=== PATIENT | female | born 1985 | race Caucasian/White ===

== ENCOUNTER → 2016-05-11 | Outpatient (CLI) | payer BC | END | disposition home or self-care (01) | LOC: LABWHC1 09:48 | PROVIDERS: ATTEND Family Medicine | DX: R94.6 Abnormal results of thyroid function studies (principal) | CPT/HCPCS: 36415; 84439; 84443 ==

== ENCOUNTER → 2016-05-21 | Outpatient (CLI) | payer BC ==
[2016-05-27 11:02] LABS: Mis test requested (Non-blood) UCOTN
== END | disposition home or self-care (01) ==
LOC: MMGSC 16:22
PROVIDERS: ATTEND Family Medicine
DX: Z02.6 Encounter for examination for insurance purposes (principal)
CPT/HCPCS: 80307

== ENCOUNTER → 2016-05-24 | Outpatient (CLI) | payer BC | END | disposition home or self-care (01) | LOC: MMGSC 16:24 | PROVIDERS: ATTEND Family Medicine | DX: J32.9 Chronic sinusitis, unspecified (principal) | CPT/HCPCS: 87070 ==

== ENCOUNTER → 2017-02-25 | Outpatient (CLI) | payer BC ==
[2017-02-25 12:12] LABS: CH 29.7; HCT 39.1 % (34.0-46.0); HDW 2.83; HGB 13.5 gm/dL (11.4-16.0); MCH 29.4 pg (25.0-35.0); MCHC 34.5 g/dL (31.0-37.0); MCV 85.1 fL (80.0-100.0); Mean Platelet Volume 6.8; RBC 4.59 m/uL (3.80-5.40); RDW 13.2 % (11.5-15.5); WBC 11.6 k/uL (3.8-10.6)
[2017-02-25 12:33] LABS: Glucose 81 mg/dL (74-99); Non-African American GFR(MDRD) >60 (>60 ml/min/1.73 sqM)
[2017-02-25 17:34] LABS: Treponemal Ab Non-Reactive (Non-Reactive)
== END | disposition home or self-care (01) ==
LOC: LABWHC1 11:27
PROVIDERS: ATTEND Obstetrics & Gynecology
DX: O26.811 Pregnancy related exhaustion and fatigue, first trimester (principal); Z3A.00 Weeks of gestation of pregnancy not specified
CPT/HCPCS: 36415; 82565; 82947; 85027; 86762; 86780; 86850; 86900; 86901; 87340; 87390

== ENCOUNTER 2017-03-21 23:39 | Emergency (ER) | payer BC ==
--- NOTE | 2017-03-22 02:10 | US ---
EXAM: US After First Trimester, Transabdominal CLINICAL HISTORY: With pain and heavy vaginal bleeding today. TECHNIQUE: Real-time transabdominal obstetrical ultrasound of the maternal pelvis and a second or third trimester with image documentation. COMPARISON: None available at this time FINDINGS: Fetus: Detailed evaluation of the facial structures, abdominal structures, spine and umbilical cord were not performed. Heart rate: Positive heart tones at 155 bpm. Presentation: A single intrauterine gestation is identified in transverse position, head maternal right. Placenta: The placenta is anterior and lateral but appears to be low- lying. No evidence for abruption. Amniotic fluid: The FREDDIE is 11.9 cm. Anatomy: See above. BIOMETRICS Gestational age by US: EFW: The estimated weight is 125.5 g. BPD: The biparietal diameter is 3 cm consistent with 15 weeks 4 days HC: Head circumference is 11.5 cm consistent with 15 weeks 4 days. AC: The abdominal circumference is 9.3 cm consistent with 15 weeks 3 days. FL: The femur length is 1.9 cm consistent with 15 weeks 3 days. MATERNAL: Uterus: Unremarkable. No myometrial mass. Cervix: The cervix is normal measuring 3.5 cm. Adnexa: There is a simple appearing anechoic structure within the right adnexa measuring 15.7 x 9.6 cm. No internal vascular flow is seen. Free fluid: No free fluid. IMPRESSION: 1. There is a simple appearing anechoic structure within the right adnexa measuring 15.7 x 9.6 cm. No internal vascular flow is seen. Follow-up imaging is recommended. Alternatively, MRI of the pelvis without contrast may be performed to evaluate the adnexa. 2. The placenta is anterior and lateral but appears to be low-lying. Follow-up imaging to further define the placenta in the third trimester should be performed. No evidence for abruption. 3. Positive heart tones at 155 bpm.
--- NOTE | 2017-03-22 02:55 | ED ---
Female Urogenital HPI - General Chief complaint: Vaginal Bleeding Stated complaint: vaginal bleeding, 15 weeks preg Time Seen by Provider: 03/22/17 00:05 Source: patient, family, RN notes reviewed, old records reviewed Mode of arrival: ambulatory Limitations: no limitations - History of Present Illness Initial comments: This patient is a 32-year-old female currently 15 weeks presents today for vaginal bleeding for two hours. She has no pain and cramping. This is her second . Her PATTERNMAKER HELPER is Dr. Lim. She denies any trauma call me a heavy lifting, or intercourse related to the onset of bleeding. Patient states that she has a negative blood type. Your postage her previous had no complications. Do you know the new dysuria, vaginal discharge pain, nausea or vomiting. - Related Data Home Medications Medication Instructions Recorded Confirmed Levothyroxine Sodium [Synthroid] 50 mcg PO DAILY 03/21/17 03/21/17 Allergies Allergy/AdvReac Type Severity Reaction Status Date / Time Penicillins Allergy Rash/Hives Verified 03/21/17 23:49 Review of Systems ROS Statement: Those systems with pertinent positive or pertinent negative responses have been documented in the HPI. ROS Other: All systems not noted in ROS Statement are negative. Past Medical History Past Medical History: Thyroid Disorder History of Any Multi-Drug Resistant Organisms: None Reported Past Surgical History: No Surgical Hx Reported Past Psychological History: No Psychological Hx Reported Smoking Status: Former smoker Past Alcohol Use History: None Reported Past Drug Use History: None Reported General Exam - General Exam Comments Initial Comments: This is a 32-year-old female. No distress. Limitations: no limitations General appearance: alert, in no apparent distress Head exam: Present: atraumatic, normocephalic, normal inspection Eye exam: Present: normal appearance, PERRL, EOMI. Absent: scleral icterus, conjunctival injection, periorbital swelling ENT exam: Present: normal exam, mucous membranes moist Neck exam: Present: normal inspection. Absent: tenderness, meningismus, lymphadenopathy Respiratory exam: Present: normal lung sounds bilaterally. Absent: respiratory distress, wheezes, rales, rhonchi, stridor Cardiovascular Exam: Present: regular rate, normal rhythm, normal heart sounds. Absent: systolic murmur, diastolic murmur, rubs, gallop, clicks GI/Abdominal exam: Present: soft, normal bowel sounds. Absent: distended, tenderness, guarding, rebound, rigid External exam: Present: normal external exam Speculum exam: Present: vaginal bleeding. Absent: normal speculum exam, erythema, vaginal discharge By manual exam: Present: normal by manual exam, adnexal mass (right adenexal mass). Absent: cervical motion tenderness, adnexal tenderness Extremities exam: Present: normal inspection, full ROM, normal capillary refill. Absent: tenderness, pedal edema, joint swelling, calf tenderness Back exam: Present: normal inspection Neurological exam: Present: alert, oriented X3, CN II-XII intact Psychiatric exam: Present: normal affect, normal mood Skin exam: Present: warm, dry, intact, normal color. Absent: rash Course Vital Signs 03/21/17 03/22/17 03/22/17 23:46 04:16 04:19 Temperature 99 F 99.5 F 99.6 F Pulse Rate 86 80 82 Respiratory 18 18 18 Rate Blood Pressure 141/73 122/73 120/67 O2 Sat by Pulse 99 99 Oximetry 03/22/17 04:29 Temperature 98.8 F Pulse Rate 84 Respiratory 16 Rate Blood Pressure 122/66 O2 Sat by Pulse 98 Oximetry Medical Decision Making - Medical Decision Making Pt is a 32 year old female, 15 weeks with 2 hours vaginal bleeding. Pelvic exam does show significant ammount of vaginal bleeding. Cervix appears closed, with some blood from the os. Patient is Rh -. Patient given Rhogam shot for threaatened miscarriage. US preforomed. There is a simple appearing anechoic structure with on the right adenexa measuring 15 x 9 cm. No internal vascular flow is seen. Follow-up imaging is recommended. The placenta is anterior and lateral to be more like. Follow-up imaging to further defined the placenta and a third trimester should be performed. No evidence for abruption.Positive heart tones at 155. Discussed that patient has a threatened miscarriage at this time with ammount of bleeding. She has no pain. Discussed her large ovarian cyst. Discussed she needs to see in 1-2 days. Will repeat hcg. - Lab Data Result diagrams: 03/22/17 00:52 Lab Results 03/22/17 03/22/17 03/22/17 Range/Units 00:52 00:52 00:52 WBC 12.6 H (3.8-10.6) k/uL RBC 4.63 (3.80-5.40) m/uL Hgb 13.5 (11.4-16.0) gm/dL Hct 38.9 (34.0-46.0) % MCV 84.0 (80.0-100.0) fL MCH 29.1 (25.0-35.0) pg MCHC 34.7 (31.0-37.0) g/dL RDW 13.7 (11.5-15.5) % Plt Count 230 (150-450) k/uL Neutrophils % 73 % Lymphocytes % 20 % Monocytes % 4 % Eosinophils % 1 % Basophils % 0 % Neutrophils # 9.2 H (1.3-7.7) k/uL Lymphocytes # 2.5 (1.0-4.8) k/uL Monocytes # 0.5 (0-1.0) k/uL Eosinophils # 0.2 (0-0.7) k/uL Basophils # 0.1 (0-0.2) k/uL HCG, Quant 07233.0 mIU/mL Urine HCG, Qual (Not Detectd) Blood Type O Negative Blood Type Recheck No Antibody Screen NEGATIVE 03/22/17 Range/Units 00:59 WBC (3.8-10.6) k/uL RBC (3.80-5.40) m/uL Hgb (11.4-16.0) gm/dL Hct (34.0-46.0) % MCV (80.0-100.0) fL MCH (25.0-35.0) pg MCHC (31.0-37.0) g/dL RDW (11.5-15.5) % Plt Count (150-450) k/uL Neutrophils % % Lymphocytes % % Monocytes % % Eosinophils % % Basophils % % Neutrophils # (1.3-7.7) k/uL Lymphocytes # (1.0-4.8) k/uL Monocytes # (0-1.0) k/uL Eosinophils # (0-0.7) k/uL Basophils # (0-0.2) k/uL HCG, Quant mIU/mL Urine HCG, Qual Detected (Not Detectd) Blood Type Blood Type Recheck Antibody Screen - Radiology Data Radiology results: report reviewed There is a simple appearing in a coke structure with on the right at Tisha measuring 15 x 9 cm. No internal vascular flow is seen. Follow-up imaging is recommended. The percentage is anterior and lateral to be more like. Follow-up imaging to further defined the placenta and a third trimester should be performed. No evidence for abruption.Positive heart tones at 155. Disposition Clinical Impression: Threatened miscarriage, Ovarian cyst Disposition: HOME SELF-CARE Condition: Good Instructions: Threatened Miscarriage (ED), Ovarian Cyst (ED) Additional Instructions: Patient is a follow-up with PATTERNMAKER HELPER within the next 3 days. Patient should return to emergency department if any alarming signs or symptoms occur.. Repeat normal level. Referrals: Ciarra Humphries MD [Primary Care Provider] - 1-2 days Time of Disposition: 02:54
[2017-03-22 02:58] LABS: Basophils # (A) 0.1 k/uL (0-0.2); Basophils % (A) 0 %; CH 30.1; Eosinophils # (A) 0.2 k/uL (0-0.7); Eosinophils % (A) 1 %; HCT 38.9 % (34.0-46.0); HDW 3.04; HGB 13.5 gm/dL (11.4-16.0); Luc # (Auto) 0.16; Luc % (Auto) 1; Lymphocytes # (A) 2.5 k/uL (1.0-4.8); Lymphocytes % (A) 20 %; MCH 29.1 pg (25.0-35.0); MCHC 34.7 g/dL (31.0-37.0); Monocytes # (A) 0.5 k/uL (0-1.0); Monocytes % (A) 4 %; Neutrophils # (A) 9.2 k/uL (1.3-7.7); Neutrophils % (A) 73 %; RBC 4.63 m/uL (3.80-5.40); RDW 13.7 % (11.5-15.5); WBC 12.6 k/uL (3.8-10.6); WBC (Perox) 11.97
[2017-03-22 04:30] VITALS: BP 122/66; PULSE 84; RESP 16; TEMP 98.8
[2017-03-22] MEDS ORDERED: Rhogam IMMUNE GLOBULIN 1,500 UNIT/1 ML IM ONE (04:37)
== END 2017-03-22 04:42 | disposition home or self-care (01) ==
LOC: EC 23:39
DX: O20.0 Threatened abortion (principal); O34.82 Maternal care for other abnormalities of pelvic organs, second trimester; N83.201 Unspecified ovarian cyst, right side; O26.892 Other specified pregnancy related conditions, second trimester; O99.282 Endocrine, nutritional and metabolic diseases complicating pregnancy, second trimester; E07.9 Disorder of thyroid, unspecified; Z87.891 Personal history of nicotine dependence; Z79.899 Other long term (current) drug therapy; Z88.0 Allergy status to penicillin; Z3A.15 15 weeks gestation of pregnancy
CPT/HCPCS: 36415; 86900; 86901; 85025; 86850; 81025; 84702; 87491; 87591; 76805; 99284; 90384; 96372; J2791

== ENCOUNTER 2017-04-12 12:24 | Observation (INO) | payer BC ==
[2017-04-12] MEDS ORDERED: MORPHINE SULFATE 2 MG/ML SYRINGE IVP STA (13:56)
[2017-04-12] MEDS ORDERED: SODIUM CHLORIDE 0.9% 1,000 ML IV ONE (13:57)
[2017-04-12] MEDS ORDERED: METOCLOPRAMIDE 5 MG/ML 2 ML VIAL IVP STA (13:57)
[2017-04-12] MEDS ORDERED: diphenhydrAMINE 50 MG/ML 1 ML VIAL IVP STA (13:57)
[2017-04-12 14:07] LABS: Basophils # (A) 0.1 k/uL (0-0.2); Basophils % (A) 0 %; Eosinophils # (A) 0.1 k/uL (0-0.7); Eosinophils % (A) 0 %; HCT 42.6 % (34.0-46.0); Lymphocytes # (A) 1.5 k/uL (1.0-4.8); Lymphocytes % (A) 8 %; MCH 28.2 pg (25.0-35.0); MCHC 32.8 g/dL (31.0-37.0); Mean Platelet Volume 7.5; Monocytes # (A) 0.5 k/uL (0-1.0); Monocytes % (A) 3 %; Neutrophils # (A) 17.5 k/uL (1.3-7.7); Neutrophils % (A) 88 %; Platelet Count 256 k/uL (150-450); RBC 4.96 m/uL (3.80-5.40); RDW 14.9 % (11.5-15.5); WBC 19.8 k/uL (3.8-10.6)
[2017-04-12 14:21] LABS: ALT 29 U/L (9-52); AST 17 U/L (14-36); Albumin 4.2 g/dL (3.5-5.0); Alkaline Phosphatase 71 U/L (38-126); Anion Gap 14 mmol/L; Blood Urea Nitrogen 7 mg/dL (7-17); Calcium 9.9 mg/dL (8.4-10.2); Carbon Dioxide 19 mmol/L (22-30); Chloride 107 mmol/L (98-107); Glucose 108 mg/dL (74-99); Potassium 3.9 mmol/L (3.5-5.1); Sodium 140 mmol/L (137-145); Total Bilirubin 0.3 mg/dL (0.2-1.3); Total Protein 7.3 g/dL (6.3-8.2)
--- NOTE | 2017-04-12 15:25 | US ---
EXAMINATION TYPE: US abdomen APPY DATE OF EXAM: 04/12/2017 COMPARISON: NONE CLINICAL HISTORY: RLQ Pain. Elevated WBC TECHNIQUE: Ledezma scale color flow and spectral Doppler ultrasonography was performed of the right abdo men. APPENDIX AP Diameter (normal < 6mm): Not visualized on this exam Is the appendix seen in its entirety from the proximal cecum to distal end: No, the appendix is not visualized on this exam Within the right adnexa, there is a complex cystic area of unknown etiology visualized measuring 13.6 x 10.9 x 14.9 cm. This area previously measured 15.7 x 9.6 x 14.1 cm on 03/22/2017. Color flow and spectral signals are identified within the soft tissue focus in the right lower quadra nt adjacent to the complex cyst. IMPRESSION: A normal or abnormal appendix is not seen. There is a complex cystic area which is slightly decreased in size since the prior study. Continued i maging follow-up is recommended. MRI could also be obtained if warranted.
--- NOTE | 2017-04-12 15:34 | US ---
EXAMINATION TYPE: US OB >= 14 wk fetus DATE OF EXAM: 04/12/2017 COMPARISON: US 03/22/2017 CLINICAL HISTORY: Pain Difficult exam due to position TECHNIQUE: Transabdominal (TA) GESTATIONAL AGE / DATING Physician Established: (17 weeks/6 days) EDC: 09/14/2017 Dates by LMP: (17 weeks/6 days) EDC: 09/14/2017 Dates by First Scan: (18 weeks/5 days) EDC: 09/08/2017 Dates by Current Scan: (17 weeks/6 days) EDC: 09/14/2017 Beta HCG (if available): Not available at time of exam SURVEY IUP: Single PLACENTA: Anterior/Fundal PREVIA: Low Lying FREDDIE: 13.9 cm Normal CERVICAL LENGTH (transabdominal: norm > 3.0cm): 4.4 cm BIOMETRY PRESENTATION: Breech LIE: Transverse with head maternal right BPD: 3.85 cm 17 weeks / 5 days HC: 14.6 cm 14 weeks / 4 days AC: 13.07 cm 18 weeks / 4 days FL: 2.63 cm 18 weeks / 0 days ESTIMATED WEIGHT IN GRAMS: 229.65 grams ESTIMATED WEIGHT IN LBS/OZ: 0 lbs. 8 oz. WEIGHT PERCENTAGE BASED ON ESTABLISHED DATES: 68.4% HC/AC: 1.09 Normal FL/AC: 20.14 Normal HEART RATE: 153 bpm RHYTHM: Normal MATERNAL WALL MEASUREMENT: 4.6 cm from skin to anterior uterine wall (if exam limited due to body hab itus). Viable IUP, measurements consistent with dates. Low lying placenta. Difficult exam as patient is in e xtreme pain and could not tolerate probe pressure. Limited visualization of head structures due to position. IMPRESSION: The placenta is again anterior and lateral but appears to be low-lying. Follow-up imaging to further define the placenta in the third trimester should be performed. No evidence for abruption. Positive heart tones at 155 bpm.
[2017-04-12 15:39] LABS: Amorphous Sediment,Urine Rare /hpf; Appearance,Urine Cloudy (Clear); Bilirubin,Urine Negative (Negative); Blood,Urine Negative (Negative); Color,Urine Yellow; Glucose,Urine (UA) Negative (Negative); Hyaline Casts,Urine 5 /lpf (0-2); Ketones,Urine 4+ (Negative); Leukocyte Esterase,Urine Moderate (Negative); Mucus,Urine Many /hpf; Nitrite,Urine Negative (Negative); PH, Urine 7.5 (5.0-8.0); Protein,Urine 1+ (Negative); Specific Gravity,Urine 1.025 (1.001-1.035); Squamous Epithelial Cell,Urine 19 /hpf (0-4); Urobilinogen,Urine <2.0 mg/dL (<2.0); WBC,Urine 43 /hpf (0-5)
[2017-04-12] MEDS ORDERED: MORPHINE SULFATE 2 MG/ML SYRINGE IVP ONE ×2 (15:46→16:52)
--- NOTE | 2017-04-12 16:12 | ED ---
Abdominal Pain HPI - General Chief Complaint: Abdominal Pain Stated Complaint: Abd Pain-18 weeks Time Seen by Provider: 04/12/17 13:15 Source: patient Mode of arrival: wheelchair Limitations: no limitations - History of Present Illness Initial Comments: 32-year-old female patient presents to the emergency department today for evaluation of lower abdominal pain with radiation to her back. Patient is currently 18 weeks . She is . Her initial was uncomplicated. Patient states that this pain started this morning around 11: 00. She describes the pain as sharp in nature and severe. She is currently rating at a 9 out of 10 on the pain scale. She states the pain is located all across her lower abdomen but is worse on the right lower quadrant. The patient states that she has a known cyst on the right side. She denies any vaginal bleeding or discharge. Denies any hematuria, dysuria, urinary frequency, or urinary urgency. She denies any fevers or chills. States she has been nauseated and has vomited related to the pain. She denies any diarrhea or constipation. Patient denies any recent rash, shortness breath, chest pain, numbness, tingling, dizziness, weakness, headache, visual changes, or any other complaints. She denies any previous abdominal surgeries. - Related Data Home Medications Medication Instructions Recorded Confirmed Levothyroxine Sodium [Synthroid] 50 mcg PO DAILY 03/21/17 04/12/17 Pnv,Calcium 72/Iron/Folic Acid 1 tab PO DAILY 04/12/17 04/12/17 [ Plus Tablet] Allergies Allergy/AdvReac Type Severity Reaction Status Date / Time Penicillins Allergy Rash/Hives Verified 04/12/17 13:27 Review of Systems ROS Statement: Those systems with pertinent positive or pertinent negative responses have been documented in the HPI. ROS Other: All systems not noted in ROS Statement are negative. Past Medical History Past Medical History: Thyroid Disorder History of Any Multi-Drug Resistant Organisms: None Reported Past Surgical History: No Surgical Hx Reported Past Psychological History: No Psychological Hx Reported Smoking Status: Former smoker Past Alcohol Use History: None Reported Past Drug Use History: None Reported General Exam Limitations: no limitations General appearance: alert, in no apparent distress, other (Physical well- developed, well-nourished adult female patient in mild distress related to pain. Vital signs upon presentation are temperature 96.9F, pulse 67, respirations 16, blood pressure 107/65, pulse ox 100% on room air.) Eye exam: Present: normal appearance, PERRL, EOMI. Absent: scleral icterus, conjunctival injection, periorbital swelling ENT exam: Present: normal exam, normal oropharynx, mucous membranes moist Respiratory exam: Present: normal lung sounds bilaterally. Absent: respiratory distress, wheezes, rales, rhonchi, stridor Cardiovascular Exam: Present: regular rate, normal rhythm, normal heart sounds. Absent: systolic murmur, diastolic murmur, rubs, gallop, clicks GI/Abdominal exam: Present: soft, tenderness (Right lower quadrant abdominal tenderness.), normal bowel sounds. Absent: distended, guarding, rebound, rigid Back exam: Present: normal inspection. Absent: CVA tenderness (R), CVA tenderness (L) Neurological exam: Present: alert, oriented X3, CN II-XII intact Psychiatric exam: Present: normal affect, normal mood Skin exam: Present: warm, dry, intact, normal color. Absent: rash Course Vital Signs 04/12/17 04/12/17 13:08 16:46 Temperature 96.9 F L 98.1 F Pulse Rate 67 74 Respiratory 16 18 Rate Blood Pressure 107/65 136/67 O2 Sat by Pulse 100 97 Oximetry Medical Decision Making - Medical Decision Making 32-year-old female patient presented to the emergency department today with complaints of lower abdominal pain worse in the right lower quadrant. Patient is also reporting lower back pain. Patient is 18 weeks and is . Physical examination does reveal some lower abdominal tenderness again worse in the right lower quadrant. No CVA tenderness is noted. Labs reviewed and did reveal an elevated white blood cell count at 19.8, urinalysis did show cloudy appearance with 1+ protein, 4+ ketones, moderate leukocyte esterase, 43 white blood cells, 19 squamous epithelial cells, rare amorphous sediment, 5 hyaline casts, and many urine mucus. This has been sent for culture. Patient is given a total of 8 mg of morphine here in the emergency department, she is still in significant pain. My attending Dr. Pritchard did speak to Dr. Castaneda who agrees to admit patient for further evaluation. IV fluids and pain management has been provided. - Lab Data Result diagrams: 04/12/17 13:57 04/12/17 13:57 Lab Results 04/12/17 04/12/17 04/12/17 Range/Units 13:57 13:57 15:20 WBC 19.8 H (3.8-10.6) k/uL RBC 4.96 (3.80-5.40) m/uL Hgb 14.0 (11.4-16.0) gm/dL Hct 42.6 (34.0-46.0) % MCV 86.0 (80.0-100.0) fL MCH 28.2 (25.0-35.0) pg MCHC 32.8 (31.0-37.0) g/dL RDW 14.9 (11.5-15.5) % Plt Count 256 (150-450) k/uL Neutrophils % 88 % Lymphocytes % 8 % Monocytes % 3 % Eosinophils % 0 % Basophils % 0 % Neutrophils # 17.5 H (1.3-7.7) k/uL Lymphocytes # 1.5 (1.0-4.8) k/uL Monocytes # 0.5 (0-1.0) k/uL Eosinophils # 0.1 (0-0.7) k/uL Basophils # 0.1 (0-0.2) k/uL Sodium 140 (137-145) mmol/L Potassium 3.9 (3.5-5.1) mmol/L Chloride 107 (98-107) mmol/L Carbon Dioxide 19 L (22-30) mmol/L Anion Gap 14 mmol/L BUN 7 (7-17) mg/dL Creatinine 0.69 (0.52-1.04) mg/dL Est GFR (MDRD) Af Amer >60 (>60 ml/min/1.73 sqM) Est GFR (MDRD) Non-Af >60 (>60 ml/min/1.73 sqM) Glucose 108 H (74-99) mg/dL Calcium 9.9 (8.4-10.2) mg/dL Total Bilirubin 0.3 (0.2-1.3) mg/dL AST 17 (14-36) U/L ALT 29 (9-52) U/L Alkaline Phosphatase 71 (38-126) U/L Total Protein 7.3 (6.3-8.2) g/dL Albumin 4.2 (3.5-5.0) g/dL Urine Color Yellow Urine Appearance Cloudy H (Clear) Urine pH 7.5 (5.0-8.0) Ur Specific [place] 1.025 (1.001-1.035) Urine Protein 1+ H (Negative) Urine Glucose (UA) Negative (Negative) Urine Ketones 4+ H (Negative) Urine Blood Negative (Negative) Urine Nitrite Negative (Negative) Urine Bilirubin Negative (Negative) Urine Urobilinogen <2.0 (<2.0) mg/dL Ur Leukocyte Esterase Moderate H (Negative) Urine WBC 43 H (0-5) /hpf Ur Squamous Epith Cells 19 H (0-4) /hpf Amorphous Sediment Rare H (None) /hpf Hyaline Casts 5 H (0-2) /lpf Urine Mucus Many H (None) /hpf - Radiology Data Radiology results: report reviewed, image reviewed Ultrasound of the fetus was obtained. Report was reviewed in its entirety. Impression by Dr. Monte shows placenta is again anterior and lateral but appears to be low lying. Follow-up imaging to further define the placenta in the third trimester should be performed. No evidence for abruption. Positive heart tones at 155. Ultrasound of the abdomen was obtained. Report was reviewed in its entirety. Impression by Dr. Monte shows a normal or abnormal appendix is not seen. There is a complex cystic area which is slightly decreased in size since the prior study. Continued imaging follow-up is recommended. MRI could also be obtained if warranted. Disposition Clinical Impression: Abdominal pain during , Complex cyst of right ovary Disposition: ADMITTED IP TO THIS [facility] Condition: Serious Referrals: Ciarra Humphries MD [Primary Care Provider] - 1-2 days Decision to Admit Reason: Admit from EC Decision Date: 04/12/17 Decision Time: 16:39
[2017-04-12] MEDS ORDERED: SODIUM CHLORIDE 0.9% 1,000 ML IV SCH (16:30)
[2017-04-12] MEDS ORDERED: NALOXONE 0.4 MG/ML 1 ML VIAL IV PRN ×2 (16:30→20:41)
[2017-04-12] MEDS ORDERED: MORPHINE SULFATE 5 MG/ML SYRINGE IV PRN (16:36)
[2017-04-12] MEDS ORDERED: ACETAMINOPHEN TAB 325 MG TAB PO PRN (16:36)
[2017-04-12] MEDS ORDERED: METOCLOPRAMIDE 5 MG/ML 2 ML VIAL IVP PRN (16:37)
[2017-04-12] MEDS ORDERED: diphenhydrAMINE 50 MG/ML 1 ML VIAL IVP PRN (16:37)
[2017-04-12 18:40] VITALS: BMI 30.4
--- NOTE | 2017-04-12 19:10 | P.HPOB ---
History of Present Illness H&P Date: 04/12/17 Chief Complaint: IUP 18 weeks: 15 cm right ovarian cyst with suspected torsion Geneva is a 32-year-old at 18 weeks gestation who has a large 15 x 10 cm right ovarian cyst. She was noted to have a smaller 7 x 7 cm cyst at approximately 8 weeks gestation however by 15 weeks gestation it had doubled in size. She had pain and bleeding was seen in the emergency room at that time in late February but was not having any pain. At that time she received program. However, this morning at approximately 11 AM she began having sharp severe pain that has been constant has not improved. She rates the pain as as 8 out of 10 on a scale even with receipt of 10 mg of morphine. Her abdomen however is soft with only minimal tenderness. A lengthy discussion was held with the patient that this arrived both risks and benefits of any type of surgery at this gestational age. Certainly the risk of spontaneous miscarriages present, so ultimately is the risk of labor down the line. However, her white blood cell count is elevated to 19 and I suspect that this is a torsion based on her symptoms as well as its presentation. Risks also including but not limited to damage to bladder, bowel, vascular injuries, nerve injuries, bleeding and infection. On physical exam currently vital signs are stable and afebrile, heart regular, lungs clear, extremities without pain. Abdomen is otherwise soft bowel sounds are noted. Gravid uterus is noted slightly below the umbilicus and heart tones were noted to be in the 150s on ultrasound. Assessment intrauterine at 18 weeks with grossly enlarged 15 cm what mostly appears to be a simple cyst and suspected torsion. Plan exploratory laparotomy with possible cystectomy versus cystotomy versus oophorectomy depending on what we find. We did discuss the possibility of doing this laparoscopically and ultimately once she is asleep if we are more comfortable with doing it laparoscopically with her being asleep and having better ability to palpate both the uterus and the cyst that may still be the route we take. Past Medical History Past Medical History: Thyroid Disorder History of Any Multi-Drug Resistant Organisms: None Reported Past Surgical History: No Surgical Hx Reported Additional Past Anesthesia/Blood Transfusion Reaction / Comment(s): NO SURGERY HISTORY Past Psychological History: No Psychological Hx Reported Smoking Status: Former smoker Past Alcohol Use History: None Reported Past Drug Use History: None Reported - Past Family History Father Additional Family Medical History / Comment(s): CARDIAC HISTORY Mother Additional Family Medical History / Comment(s): AORTIC ANEURYSM Medications and Allergies Home Medications Medication Instructions Recorded Confirmed Type Levothyroxine Sodium [Synthroid] 50 mcg PO DAILY 03/21/17 04/12/17 History Pnv,Calcium 72/Iron/Folic Acid 1 tab PO DAILY 04/12/17 04/12/17 History [ Plus Tablet] Allergies Allergy/AdvReac Type Severity Reaction Status Date / Time Penicillins Allergy Rash/Hives Verified 04/12/17 18:20 Exam Osteopathic Statement: *. No significant issues noted on an osteopathic structural exam other than those noted in the History and Physical/Consult. - Vital Signs Vital signs: Vital Signs Temp Pulse Pulse Resp BP BP Pulse Ox 04/12/17 17:48 98.3 F 66 17 118/54 97 04/12/17 17:43 66 17 118/54 97 04/12/17 17:28 98.1 F 74 20 128/74 99 04/12/17 16:46 98.1 F 74 18 136/67 97 04/12/17 13:08 96.9 F L 67 16 107/65 100 Intake and Output 04/12/17 04/12/17 04/12/17 06:59 14:59 22:59 Other: Voiding Method Toilet Weight 90.718 kg 90.718 kg Patient Weight 04/13/17 06:59 Weight 90.718 kg Results Result Diagrams: 04/12/17 13:57 04/12/17 13:57 Abnormal Lab Results - Last 24 Hours (Table) 04/12/17 04/12/17 04/12/17 Range/Units 13:57 13:57 15:20 WBC 19.8 H (3.8-10.6) k/uL Neutrophils # 17.5 H (1.3-7.7) k/uL Carbon Dioxide 19 L (22-30) mmol/L Glucose 108 H (74-99) mg/dL Urine Appearance Cloudy H (Clear) Urine Protein 1+ H (Negative) Urine Ketones 4+ H (Negative) Ur Leukocyte Esterase Moderate H (Negative) Urine WBC 43 H (0-5) /hpf Ur Squamous Epith Cells 19 H (0-4) /hpf Amorphous Sediment Rare H (None) /hpf Hyaline Casts 5 H (0-2) /lpf Urine Mucus Many H (None) /hpf
[2017-04-12] MEDS ORDERED: ACETAMINOPHEN IV (For NPO) 1,000 MG/100 ML VIAL ONE (19:58)
[2017-04-12] MEDS ORDERED: SUCCINYLCHOLINE CHLORIDE 100 MG/5 ML SYR IV ONE (19:58)
[2017-04-12] MEDS ORDERED: PROPOFOL 10 MG/ML 20 ML VIAL IV ONE (19:58)
[2017-04-12] MEDS ORDERED: ROCURONIUM BROMIDE 10 MG/ML 10 ML VIAL IV ONE (19:58)
[2017-04-12] MEDS ORDERED: IV FLUID CONTINUATION 700 ML IV ONE (19:58)
[2017-04-12] MEDS ORDERED: fentaNYL (PF) 50 MCG/ML 2 ML AMP ONE (19:58)
[2017-04-12] MEDS ORDERED: SIMETHICONE 80 MG CHEWABLE PO PRN (20:40)
[2017-04-12] MEDS ORDERED: LACTATED RINGERS 1,000 ML IV ONE (20:40)
[2017-04-12] MEDS ORDERED: ONDANSETRON 4 MG/2 ML VIAL IVP PRN (20:40)
--- NOTE | 2017-04-12 20:46 | P.OP ---
Date of Procedure: 04/12/17 Preoperative Diagnosis: grossly enlarged ovarian cyst with suspected torsion: Intrauterine at 18 weeks Postoperative Diagnosis: same Procedure(s) Performed: exporter laparotomy with right ovarian cystotomy Anesthesia: KRAIG Surgeon: Haseeb Castaneda Analytics Developer #1: Lupis Ponce Estimated Blood Loss (ml): 50 IV fluids (ml): 1,300 Urine output (ml): 50 Pathology: none sent Condition: stable Disposition: floor Operative Findings: large right ovarian cyst. Normal looking ovary and tube as well as normal looking appendix Description of Procedure: patient was taken to the operating suite where a general anesthetic was found be adequate. She was prepped and draped in the normal sterile fashion and placed in dorsal supine position with leftward tilt. Initially a vertical skin incision was made from just below the umbilicus to just above the pubic symphysis. This incision was then extended to the layer of the fashion with second knife fascia was then nicked in the midline. This opening was then extended superiorly and inferiorly. Once this was accomplished blunt dissection the peritoneum was made and this opening was extended superiorly and inferiorly with good visualization of both bowel bladder. Immediately upon entering the large right ovarian cyst was noted. I did try and manipulated to bring it up to the incision however it ruptured upon manipulation and only clear fluid was noted. We were then able to bring the ovary up and verify that there was no further torsions. At this point we did verify that there appeared to have good flow blood flow and good color to the ovary and inspection of the appendix showed a grossly normal appendix. Once this was accomplished all fluid was then suctioned from the abdomen as best as possible. Once this was accomplished boundaries of the fascia were delineated with cokers clamps and the fascia was closed in 1 layer with 0 Vicryl suture in a running locking fashion starting from the umbilicus and to the midline and then from the pubic symphysis and back to the midline meeting in the middle. Once this was accomplished 3-0 Vicryl was used to reapproximate the subcuticular tissues to reapproximate the skin. The skin was then closed with hussein. Sponge, lap, needle counts were all correct 2 and patient was then taken to the recovery room in stable and satisfactory condition. Should be noted that minimal to no real manipulation of the uterus was done during the surgery.
[2017-04-12] MEDS: HYDROmorphone PCA 5 MG/25 ML SYRINGE IV PRN (22:07)
[2017-04-12] MEDS: SENNOSIDES-DOCUSATE SODIUM 1 EACH TAB PO SCH (22:13)
[2017-04-12] MEDS: LACTATED RINGERS 1,000 ML IV SCH (23:00)
[2017-04-13] MEDS: HYDROmorphone PCA 5 MG/25 ML SYRINGE IV PRN (06:07)
[2017-04-13 07:48] LABS: Basophils # (A) 0.1 k/uL (0-0.2); Basophils % (A) 0 %; Eosinophils # (A) 0.1 k/uL (0-0.7); Eosinophils % (A) 1 %; HCT 38.3 % (34.0-46.0); HGB 12.1 gm/dL (11.4-16.0); Lymphocytes # (A) 2.4 k/uL (1.0-4.8); Lymphocytes % (A) 16 %; MCH 28.3 pg (25.0-35.0); MCHC 31.7 g/dL (31.0-37.0); MCV 89.3 fL (80.0-100.0); Mean Platelet Volume 7.5; Monocytes # (A) 0.6 k/uL (0-1.0); Monocytes % (A) 4 %; Neutrophils % (A) 79 %; Platelet Count 227 k/uL (150-450); RBC 4.29 m/uL (3.80-5.40); RDW 14.7 % (11.5-15.5); WBC 15.2 k/uL (3.8-10.6)
[2017-04-13 08:06] LABS: ALT 28 U/L (9-52); AST 17 U/L (14-36); Albumin 3.1 g/dL (3.5-5.0); Alkaline Phosphatase 52 U/L (38-126); Anion Gap 7 mmol/L; Blood Urea Nitrogen 5 mg/dL (7-17); Calcium 8.8 mg/dL (8.4-10.2); Carbon Dioxide 23 mmol/L (22-30); Chloride 107 mmol/L (98-107); Glucose 91 mg/dL (74-99); Potassium 3.9 mmol/L (3.5-5.1); Sodium 137 mmol/L (137-145); Total Bilirubin 0.3 mg/dL (0.2-1.3); Total Protein 5.6 g/dL (6.3-8.2)
[2017-04-13] MEDS: SENNOSIDES-DOCUSATE SODIUM 1 EACH TAB PO SCH ×2 (08:15→21:12)
[2017-04-13] MEDS ORDERED: Acetaminophen-Codeine 300-30mg TAB PO PRN (10:18)
--- NOTE | 2017-04-13 10:20 | P.PN ---
Progress Note - Text Progress Note Date: 04/13/17 Patient seen and evaluated this morning. Overall she is doing very well postop day 1 from exploratory laparotomy. Her pain from yesterday's completely resolved she does have incisional pain only at this time. We'll plan to continue current care for now. Her vital signs are stable afebrile. Heart regular, lungs clear, extremities are without pain. Plan to leave the dressing on for today and removed tomorrow. Plan to advance diet today. PCO be discontinued at this afternoon and switch over to by mouth pain meds with IV pain meds for severe breakthrough only. All the questions are answered for her at this time and she appears stable at this time. heart tones this morning are in the 140s.
[2017-04-13] MEDS: Acetaminophen-Codeine 300-30mg TAB PO PRN ×2 (13:32→19:44)
[2017-04-13] MEDS: LACTATED RINGERS 1,000 ML IV SCH (21:12)
[2017-04-14] MEDS: Acetaminophen-Codeine 300-30mg TAB PO PRN ×5 (00:41→23:26)
--- NOTE | 2017-04-14 06:31 | P.PN ---
Progress Note - Text Progress Note Date: 04/14/17 Post operative day #2. Patient is resting without new complaints. She still having quite a bit of discomfort from her incision, but is tolerating regular diet and is on oral pain medications. Plan today is to continue ambulation and routine postoperative care. Most likely discharge home tomorrow.
[2017-04-14] MEDS: SENNOSIDES-DOCUSATE SODIUM 1 EACH TAB PO SCH ×2 (08:00→19:26)
[2017-04-14] MEDS: LACTATED RINGERS 1,000 ML IV SCH (19:53)
--- NOTE | 2017-04-15 06:36 | P.PN ---
Progress Note - Text Progress Note Date: 04/15/17 Postoperative day #3. Patient is resting without complaints. Vital signs are stable and she is afebrile. Incision is intact and dry healing well. My impression is that this patient is stable for discharge home. Follow-up with me in 1 week for an incision check and OB visit.
--- NOTE | 2017-04-15 06:39 | P.DS ---
Providers Date of admission: 04/12/17 17:28 Expected date of discharge: 04/15/17 Attending physician: Haseeb Castaneda Primary care physician[facility] Course: Please see dictated H&P per Dr. Beltran and this patient's admission. Brief summary this is a pleasant 32-year-old female second trimester with known large ovarian cyst with acute right-sided abdominal pain consistent with ovarian torsion. Patient her exploratory laparotomy and drainage of this cyst. Again see operative note per Dr. Beltran. Postoperatively the patient did well and on postoperative 3 she felt be stable for discharge home follow up with me in 1 week. Procedures: Exploratory laparotomy and right ovarian cystectomy. Patient Condition at Discharge: Serious Plan - Discharge Summary Discharge Rx Participant: No New Discharge Prescriptions: New Acetaminophen-Codeine 300-30mg [Tylenol w/codeine #3] 1 - 2 each PO Q4HR PRN #40 tab PRN Reason: Pain SCALE 1-5 No Action Levothyroxine Sodium [Synthroid] 50 mcg PO DAILY Pnv,Calcium 72/Iron/Folic Acid [ Plus Tablet] 1 tab PO DAILY Discharge Medication List Levothyroxine Sodium [Synthroid] 50 mcg PO DAILY 03/21/17 [History] Pnv,Calcium 72/Iron/Folic Acid [ Plus Tablet] 1 tab PO DAILY 04/12/17 [ History] Acetaminophen-Codeine 300-30mg [Tylenol w/codeine #3] 1 - 2 each PO Q4HR PRN # 40 tab 04/15/17 [Rx] Follow up Appointment(s)/Referral(s): Isak Lim MD [STAFF PHYSICIAN] - 1 Week Patient Instructions/Handouts: Exploratory Laparotomy (DC) Activity/Diet/Wound Care/Special Instructions: No heavy lifting for 6 weeks. No intercourse. Please call if fever, chills, excessive abdominal pain. Discharge Disposition: HOME SELF-CARE
[2017-04-15] MEDS: Acetaminophen-Codeine 300-30mg TAB PO PRN (07:12)
[2017-04-15 09:20] VITALS: BP 110/60; PULSE 85; RESP 17; TEMP 98.8
== END 2017-04-15 09:00 | disposition home or self-care (01) ==
LOC: EC 12:24 → 6PED 17:28 → 4FBP 21:19
PROVIDERS: ADMIT Obstetrics & Gynecology; ATTEND Obstetrics & Gynecology
DX: O34.82 Maternal care for other abnormalities of pelvic organs, second trimester (principal); N83.201 Unspecified ovarian cyst, right side; O99.282 Endocrine, nutritional and metabolic diseases complicating pregnancy, second trimester; E07.9 Disorder of thyroid, unspecified; Z87.891 Personal history of nicotine dependence; Z3A.18 18 weeks gestation of pregnancy; Z79.899 Other long term (current) drug therapy; Z88.0 Allergy status to penicillin
CPT/HCPCS: 58925; 99285 ×2; 96374 ×2; 96375 ×3; 96376 ×3; 36415; 80053 ×2; 85025 ×2; 81001; 87040; 87086; 76705; 76805; G0378 ×5; J1200; J2765 ×2; J3010; J2270; J1170 ×2; J0131; J0330; J2704

== ENCOUNTER → 2017-06-03 | Outpatient (CLI) | payer BC ==
[2017-06-03 19:43] LABS: ALT 16 U/L (9-52); AST 16 U/L (14-36); Albumin 3.6 g/dL (3.5-5.0); Alkaline Phosphatase 71 U/L (38-126); Anion Gap 10 mmol/L; Blood Urea Nitrogen 8 mg/dL (7-17); Calcium 9.2 mg/dL (8.4-10.2); Carbon Dioxide 23 mmol/L (22-30); Chloride 105 mmol/L (98-107); Cholesterol 216 mg/dL (<200); Glucose 68 mg/dL (74-99); HDL Cholesterol 55 mg/dL (40-60); LDL Cholesterol,Calculated 122 mg/dL (0-99); Potassium 4.2 mmol/L (3.5-5.1); Sodium 138 mmol/L (137-145); Total Bilirubin 0.3 mg/dL (0.2-1.3); Total Protein 6.5 g/dL (6.3-8.2); Triglycerides 197 mg/dL (<150)
[2017-06-03 19:47] LABS: Basophils # (A) 0.1 k/uL (0-0.2); Basophils % (A) 1 %; Eosinophils # (A) 0.1 k/uL (0-0.7); Eosinophils % (A) 1 %; HCT 38.1 % (34.0-46.0); HGB 13.1 gm/dL (11.4-16.0); Lymphocytes # (A) 2.2 k/uL (1.0-4.8); Lymphocytes % (A) 16 %; MCH 28.8 pg (25.0-35.0); MCHC 34.4 g/dL (31.0-37.0); Mean Platelet Volume 8.2; Monocytes # (A) 0.5 k/uL (0-1.0); Monocytes % (A) 4 %; Neutrophils # (A) 10.6 k/uL (1.3-7.7); Neutrophils % (A) 78 %; Platelet Count 240 k/uL (150-450); RBC 4.55 m/uL (3.80-5.40); RDW 13.8 % (11.5-15.5); WBC 13.6 k/uL (3.8-10.6)
[2017-06-03 19:50] LABS: MCV 83.6 fL (80.0-100.0)
[2017-06-03 19:54] LABS: T4, Free (Free Thyroxine) 0.84 ng/dL (0.78-2.19)
== END | disposition home or self-care (01) ==
LOC: MMGSC 12:01
PROVIDERS: ATTEND Family Medicine
DX: Z00.00 Encounter for general adult medical examination without abnormal findings (principal)
CPT/HCPCS: 36415; 80053; 80061; 84439; 84443; 85025

== ENCOUNTER → 2017-06-16 | Outpatient (CLI) | payer BC ==
[2017-06-16 10:50] LABS: HCT 36.1 % (34.0-46.0); MCH 27.9 pg (25.0-35.0); MCHC 33.4 g/dL (31.0-37.0); MCV 83.6 fL (80.0-100.0); Mean Platelet Volume 7.4; Platelet Count 235 k/uL (150-450); RBC 4.32 m/uL (3.80-5.40); RDW 13.9 % (11.5-15.5); WBC 15.3 k/uL (3.8-10.6)
== END | disposition home or self-care (01) ==
LOC: LABWHC1 09:30
PROVIDERS: ATTEND Obstetrics & Gynecology
DX: Z34.82 Encounter for supervision of other normal pregnancy, second trimester (principal); Z3A.00 Weeks of gestation of pregnancy not specified
CPT/HCPCS: 36415; 82950; 85027; 86850

== ENCOUNTER 2017-09-14 09:50 | Inpatient (IN) | payer BC ==
[2017-09-17] MEDS ORDERED: OXYTOCIN 10 UNIT/ML 1 ML VIAL IM PRN (06:01)
[2017-09-17] MEDS ORDERED: LIDOCAINE 1% (PF) 10 MG/ML (30 ML SDV) SQ PRN (06:01)
[2017-09-17] MEDS ORDERED: CARBOPROST TROMETHAMINE 250 MCG/ML 1 ML AMP IM PRN (06:01)
[2017-09-17] MEDS ORDERED: TERBUTALINE 1 MG/ML VIAL SQ PRN (06:01)
[2017-09-17] MEDS ORDERED: OXYTOCIN 20 UNITS/1000 ML NS 1,000 ML IV SCH ×2 (06:01→11:58)
[2017-09-17] MEDS ORDERED: METHYLERGONOVINE 0.2 MG/ML 1 ML AMP IM PRN (06:01)
[2017-09-17 06:08] VITALS: BMI 34.9
[2017-09-17] MEDS: LACTATED RINGERS 1,000 ML IV SCH ×2 (06:09→09:16)
[2017-09-17 06:17] LABS: Basophils # (A) 0.1 k/uL (0-0.2); Basophils % (A) 0 %; Eosinophils # (A) 0.2 k/uL (0-0.7); Eosinophils % (A) 1 %; HCT 36.3 % (34.0-46.0); HGB 12.3 gm/dL (11.4-16.0); Lymphocytes # (A) 2.6 k/uL (1.0-4.8); Lymphocytes % (A) 19 %; MCH 26.6 pg (25.0-35.0); Mean Platelet Volume 7.5; Microcytosis Slight; Monocytes # (A) 0.9 k/uL (0-1.0); Monocytes % (A) 7 %; Neutrophils # (A) 9.4 k/uL (1.3-7.7); Neutrophils % (A) 71 %; Platelet Count 237 k/uL (150-450); RBC 4.65 m/uL (3.80-5.40); RDW 15.7 % (11.5-15.5); WBC 13.2 k/uL (3.8-10.6)
--- NOTE | 2017-09-17 06:25 | P.HPOB ---
History of Present Illness H&P Date: 09/17/17 Chief Complaint: Postdates induction of labor. This patient is a pleasant 32-year-old 2 para 1 female estimated date of confinement 09/14/2017 estimated gestational age 40-3/7 weeks who presents to labor and delivery for elective postdates induction of labor. Patient's care is complicated by a very large right ovarian cyst. Patient had a 15 cm ovarian cyst that did torus at approximately 20 weeks. Patient underwent exploratory laparotomy by Dr. Castaneda for this and it was benign. Patient's otherwise has been uncomplicated. Patient now presents for requested induction of labor due to postdates. Review of Systems Gastrointestinal: Reports heartburn Genitourinary: Reports Menstruation: Reports amenorrhea Past Medical History Past Medical History: Thyroid Disorder History of Any Multi-Drug Resistant Organisms: None Reported Additional Past Surgical History / Comment(s): cyst on left wrist. sewing needle taken out of foot. wisdom teeth. Exploratory laparotomy at 20 weeks gestation. Past Anesthesia/Blood Transfusion Reactions: No Reported Reaction Past Psychological History: Anxiety Smoking Status: Former smoker Past Alcohol Use History: None Reported Past Drug Use History: None Reported - Past Family History Father Additional Family Medical History / Comment(s): CARDIAC HISTORY, mother had an aortic aneurysm at age 4141 years old. Mother Additional Family Medical History / Comment(s): AORTIC ANEURYSM Medications and Allergies Home Medications Medication Instructions Recorded Confirmed Type Levothyroxine Sodium [Synthroid] 50 mcg PO DAILY 03/21/17 09/17/17 History Pnv,Calcium 72/Iron/Folic Acid 1 tab PO DAILY 04/12/17 09/17/17 History [ Plus Tablet] Allergies Allergy/AdvReac Type Severity Reaction Status Date / Time Penicillins Allergy Rash/Hives Verified 09/17/17 06:01 Exam - Vital Signs Vital signs: Vital Signs Temp Pulse Resp BP 09/17/17 06:02 97.2 F L 80 16 132/90 Intake and Output 09/16/17 09/16/17 09/17/17 14:59 22:59 06:59 Other: # Voids 1 Weight 104.326 kg - OBG Physical Exam Abdomen: bowel sounds normal, no diffuse tenderness, no bruit present, no guarding noted, no hepatomegaly, no splenomegaly, no mass Vulva: both: normal Vagina: normal moisture, no discharge Cervix: no lesion (Cervix is 3-4 cm dilated 50% effaced -2 station.), no discharge Uterus: enlarged (Fundal height is 39 cm.) Results blood work shows she is O-, rubella immune, RPR nonreactive, HIV nonreactive, hepatitis B negative, Glucola was normal, group B strep was negative, ultrasounds have been normal with the exception ovarian cyst. Estimated weight is approximately 8 pounds. Assessment and Plan Assessment: This is a pleasant 32-year-old 2 para 1 female 40-3/7 weeks gestation who is admitted to labor and delivery for postdates induction of labor. Plan is induction of labor and anticipate vaginal delivery. (1) Post-dates Current Visit: Yes Status: Acute Code(s): O48.0 - POST-TERM SNOMED Code(s): 27917712 (2) Rh negative status during Current Visit: Yes Status: Acute Code(s): O09.899 - SUPERVISION OF OTHER HIGH RISK PREGNANCIES, UNSP TRIMESTER; Z67.91 - UNSPECIFIED BLOOD TYPE, RH NEGATIVE SNOMED Code(s): 362867830 (3) Elective induction of labor planned Current Visit: Yes Status: Acute Code(s): BKV2246 - SNOMED Code(s): 558130573
[2017-09-17] MEDS ORDERED: SODIUM CHLORIDE 0.9% 100 ML BAG ONE (09:16)
[2017-09-17] MEDS ORDERED: BUPIVACAINE (PF) 0.25% 30 ML VIAL ONE (09:16)
[2017-09-17] MEDS ORDERED: fentaNYL (PF) 50 MCG/ML 5 ML AMP ONE (09:16)
[2017-09-17] MEDS ORDERED: ROPIVACAINE 100 MG, fentaNYL (PF) 200 MCG in SODIUM CHLORIDE 0.9% 76 ML EPIDURAL ONE (11:41)
[2017-09-17] MEDS ORDERED: diphenhydrAMINE 25 MG CAP PO PRN (11:58)
[2017-09-17] MEDS ORDERED: HYDROCORTISONE 2.5% RECTAL CREAM 30 GM TUBE RECTAL PRN (11:58)
[2017-09-17] MEDS ORDERED: BISACODYL 10 MG SUPP RECTAL PRN (11:58)
[2017-09-17] MEDS ORDERED: WITCH HAZEL 1 EACH MED..PAD TOPICAL PRN (11:58)
[2017-09-17] MEDS ORDERED: LANOLIN CREAM 5 GM TUBE TOPICAL PRN (11:58)
[2017-09-17] MEDS ORDERED: ZOLPIDEM 5 MG TAB PO PRN (11:58)
[2017-09-17] MEDS ORDERED: diphenhydrAMINE 50 MG/ML 1 ML VIAL IVP PRN (11:58)
[2017-09-17] MEDS ORDERED: BENZOCAINE/MENTHOL SPRAY 1 GM/SPRAY AEROSOL TOPICAL PRN (11:58)
[2017-09-17] MEDS ORDERED: Rhogam IMMUNE GLOBULIN 1,500 UNIT/1 ML IM ONE (11:58)
[2017-09-17] MEDS ORDERED: SIMETHICONE 80 MG CHEWABLE PO PRN (11:58)
--- NOTE | 2017-09-17 12:23 | P.PROBDLV ---
Vaginal Delivery Note - . Vaginal Delivery Note: Normal vaginal delivery viable male infant Apgars are 9 and 9 delivery time was 1151 hrs. Please see dictated H&P for intimate details of this patient's admission. Brief summary this is a pleasant 32-year-old 2 para 1 female 40-3/7 weeks gestation who is admitted to labor and delivery for postdates induction. On admission patient is 3-4 cm dilated has artificial rupture membranes for clear fluid. Labor is induced with Pitocin per protocol. Patient's labor progresses quickly and she does get an epidural for pain control. Patient pushes the head to the perineum. Posterior perineum is supported we have controlled delivery of the infant's head over the intact perineum. Mouth and nares are bulb suctioned. There is no evidence of a nuchal cord. With gentle downward traction we then have delivery the anterior and posterior shoulder and rest this infant's body. This is a vigorous viable male Apgars are 9 and 9 delivery time is 1151 hrs. After delivery of the is late the mother's abdomen. After cord is done pulsating is doubly clamped cut and transected. It appears to be trivascular. The placenta is then spontaneously delivered intact. Inspection of the perineum shows a first-degree perineal laceration midline. There is also a left labial laceration. The perineal laceration is repaired with 3-0 Vicryl in the usual fashion excellent reapproximation is noted. The left labial laceration is repaired with 4-0 Vicryl carefully reapproximating the labia with good reapproximation. This time final inspection shows normal bleeding. All counts are correct 3. There are no complications. and mother are stable delivery room.
[2017-09-17] MEDS: SENNOSIDES-DOCUSATE SODIUM 1 EACH TAB PO SCH ×2 (16:03→20:58)
[2017-09-17] MEDS: IBUPROFEN 600 MG TAB PO PRN ×2 (17:01→23:01)
[2017-09-17] MEDS: ACETAMINOPHEN TAB 325 MG TAB PO PRN (20:57)
[2017-09-18 00:13] VITALS: PULSE 84
[2017-09-18] MEDS: ACETAMINOPHEN TAB 325 MG TAB PO PRN (02:41)
[2017-09-18 05:23] LABS: Basophils % (A) 0 %; Eosinophils # (A) 0.2 k/uL (0-0.7); Eosinophils % (A) 1 %; HCT 30.3 % (34.0-46.0); HGB 10.1 gm/dL (11.4-16.0); Lymphocytes # (A) 2.6 k/uL (1.0-4.8); Lymphocytes % (A) 17 %; MCH 26.2 pg (25.0-35.0); MCHC 33.3 g/dL (31.0-37.0); MCV 78.7 fL (80.0-100.0); Mean Platelet Volume 7.6; Monocytes # (A) 0.8 k/uL (0-1.0); Monocytes % (A) 5 %; Neutrophils # (A) 11.4 k/uL (1.3-7.7); Neutrophils % (A) 75 %; Platelet Count 224 k/uL (150-450); RBC 3.85 m/uL (3.80-5.40); RDW 15.8 % (11.5-15.5); WBC 15.2 k/uL (3.8-10.6)
--- NOTE | 2017-09-18 07:04 | P.PNOBGVD ---
Subjective - Subjective Patient reports: Reports appetite normal, Reports voiding normally, Reports pain well controlled, Reports ambulating normally : doing well Objective - Latest Vital Signs Latest vital signs: Vital Signs Temp Pulse Resp BP 09/18/17 00:00 98.1 F 84 15 113/58 09/17/17 20:00 98 F 80 15 131/64 09/17/17 16:00 96.4 F L 96 18 121/59 09/17/17 14:30 96.8 F L 97 18 126/57 09/17/17 14:15 97.0 F L 87 18 121/58 09/17/17 13:45 86 116/58 09/17/17 13:15 97.1 F L 83 18 110/60 09/17/17 13:00 97.3 F L 77 18 113/62 09/17/17 12:45 84 116/64 09/17/17 12:30 97.2 F L 80 18 119/68 09/17/17 12:15 97.5 F L 76 18 114/58 Intake and Output 09/17/17 09/18/17 09/18/17 22:59 06:59 14:59 Other: # Voids 1 1 - Exam Lungs: bilateral: normal Chest: Normal S1, Normal S2 Extremities: Present: normal Abdomen: Present: normal appearance, soft Uterus: Present: normal, firm - Labs Labs: Abnormal Lab Results - Last 24 Hours (Table) 09/18/17 Range/Units 05:01 WBC 15.2 H (3.8-10.6) k/uL Hgb 10.1 L (11.4-16.0) gm/dL Hct 30.3 L (34.0-46.0) % MCV 78.7 L (80.0-100.0) fL RDW 15.8 H (11.5-15.5) % Neutrophils # 11.4 H (1.3-7.7) k/uL Assessment and Plan Assessment: day #1. Patient's resting without complaints wishes to go home. Vital signs are stable she is afebrile. Uterus is firm nontender and she is having normal lochia. My impression is that this is a normal course. Plan is to continue routine care discharge home later today. (1) Post-dates Current Visit: Yes Status: Acute Code(s): O48.0 - POST-TERM SNOMED Code(s): 12364175 (2) Rh negative status during Current Visit: Yes Status: Acute Code(s): O09.899 - SUPERVISION OF OTHER HIGH RISK PREGNANCIES, UNSP TRIMESTER; Z67.91 - UNSPECIFIED BLOOD TYPE, RH NEGATIVE SNOMED Code(s): 555235380 (3) Elective induction of labor planned Current Visit: Yes Status: Acute Code(s): VTB8881 - SNOMED Code(s): 642923512
--- NOTE | 2017-09-18 07:09 | P.DS ---
Providers Date of admission: 09/17/17 05:45 Expected date of discharge: 09/18/17 Attending physician: Isak Lim Primary care physician: Stated None - Discharge Diagnosis(es) (1) Post-dates Current Visit: Yes Status: Acute (2) Rh negative status during Current Visit: Yes Status: Acute (3) Elective induction of labor planned Current Visit: Yes Status: Acute Hospital Course: Please see dictated H&P for intimate details of this patient's admission. Brief summary this is a pleasant 32-year-old 2 para 1 female 40-3/7 weeks gestation who is admitted to labor and delivery for elective postdates induction of labor. Patient is admitted has uncomplicated induction of labor was on have a vaginal delivery viable male . Please see dictated delivery note. Patient was felt to be stable for discharge home day #1 follow up with me in 6 weeks. Procedures: Induction of labor normal vaginal delivery. Patient Condition at Discharge: Good Plan - Discharge Summary New Discharge Prescriptions: New Ibuprofen [Motrin] 600 mg PO Q6HR PRN #40 tab PRN Reason: Mild Pain Or Fever >= 100.5 No Action Levothyroxine Sodium [Synthroid] 50 mcg PO DAILY Pnv,Calcium 72/Iron/Folic Acid [ Plus Tablet] 1 tab PO DAILY Discharge Medication List Levothyroxine Sodium [Synthroid] 50 mcg PO DAILY 03/21/17 [History] Pnv,Calcium 72/Iron/Folic Acid [ Plus Tablet] 1 tab PO DAILY 04/12/17 [ History] Ibuprofen [Motrin] 600 mg PO Q6HR PRN #40 tab 09/18/17 [Rx] Follow up Appointment(s)/Referral(s): Isak Lim MD [STAFF PHYSICIAN] - 6 Weeks Patient Instructions/Handouts: Vaginal Delivery (DC) Activity/Diet/Wound Care/Special Instructions: No intercourse for 6 weeks. Please call if any fever, chills, excessive vaginal bleeding, and/or abdominal pain. Discharge Disposition: HOME SELF-CARE
[2017-09-18] MEDS: SENNOSIDES-DOCUSATE SODIUM 1 EACH TAB PO SCH (09:03)
[2017-09-18] MEDS: IBUPROFEN 600 MG TAB PO PRN (09:04)
[2017-09-18 09:16] VITALS: BP 129/74; RESP 16; TEMP 97.8
== END 2017-09-18 12:46 | disposition home or self-care (01) | DRG 775 ==
LOC: 4FBP 09-17 05:45
PROVIDERS: ADMIT Obstetrics & Gynecology; ATTEND Obstetrics & Gynecology
PROC: 10E0XZZ Delivery of Products of Conception, External Approach (ICD-10-PCS; principal; 2017-09-17)
PROC: 10907ZC Drainage of Amniotic Fluid, Therapeutic from Products of Conception, Via Natural or Artificial Opening (ICD-10-PCS; 2017-09-17)
PROC: 3E033VJ Introduction of Other Hormone into Peripheral Vein, Percutaneous Approach (ICD-10-PCS; 2017-09-17)
PROC: 0HQ9XZZ Repair Perineum Skin, External Approach (ICD-10-PCS; 2017-09-17)
PROC: 0UQMXZZ Repair Vulva, External Approach (ICD-10-PCS; 2017-09-17)
PROC: 3E0234Z Introduction of Serum, Toxoid and Vaccine into Muscle, Percutaneous Approach (ICD-10-PCS; 2017-09-17)
PROC: 00HU33Z Insertion of Infusion Device into Spinal Canal, Percutaneous Approach (ICD-10-PCS; 2017-09-17)
PROC: 3E0S3NZ Introduction of Analgesics, Hypnotics, Sedatives into Epidural Space, Percutaneous Approach (ICD-10-PCS; 2017-09-17)
DX: O48.0 Post-term pregnancy (principal); O70.0 First degree perineal laceration during delivery; Z3A.40 40 weeks gestation of pregnancy; O34.83 Maternal care for other abnormalities of pelvic organs, third trimester; N83.201 Unspecified ovarian cyst, right side; O26.893 Other specified pregnancy related conditions, third trimester; O99.62 Diseases of the digestive system complicating childbirth; K21.9 Gastro-esophageal reflux disease without esophagitis; E07.9 Disorder of thyroid, unspecified; F41.9 Anxiety disorder, unspecified; O99.344 Other mental disorders complicating childbirth; O99.284 Endocrine, nutritional and metabolic diseases complicating childbirth; Z88.0 Allergy status to penicillin; Z67.41 Type O blood, Rh negative; Z37.0 Single live birth; Z87.891 Personal history of nicotine dependence; Z82.49 Family history of ischemic heart disease and other diseases of the circulatory system; Z79.890 Hormone replacement therapy
CPT/HCPCS: 85025; 85461

== ENCOUNTER → 2019-12-24 | Outpatient (CLI) | payer BC ==
--- NOTE | 2019-12-24 17:00 | US ---
EXAMINATION TYPE: US transvaginal DATE OF EXAM: 12/24/2019 COMPARISON: NONE CLINICAL HISTORY: N92.0 menorrhagia. TECHNIQUE: Transvaginal (TV). Date of LMP: 12-08-19 EXAM MEASUREMENTS: Uterus: 9.0 x 4.3 x 5.0 cm Endometrial Stripe: 0.9 cm Right Ovary: 3.1 x 2.3 x 2.3 cm Left Ovary: 2.5 x 1.2 x 2.4 cm 1. Uterus: Anteverted wnl 2. Endometrium: Heterogeneous, several tiny cystic appearing areas 3. Right Ovary: cyst vs dominant follicle measuring 1.6 x 1.8 x 1.7cm 4. Left Ovary: wnl 5. Bilateral Adnexa: wnl 6. Posterior cul-de-sac: wnl Heterogeneous uterus. Endometrium measures 9 mm in thickness towards the fundus which is within jonna l limits for secretory phase of menstrual cycle. Tiny cysts are present. No focal intramural lesion. No free fluid in pelvic cul-de-sac. Ovaries normal in size. There is 1.8 cm dominant follicle or simple small ovarian cyst in the periphe ry of the right ovary. Subcentimeter peripheral follicles are scattered throughout the left ovary. No suspicious adnexal lesions. IMPRESSION: Source of patient's symptoms not identified.
== END | disposition home or self-care (01) ==
LOC: RADUSWWP 16:16
PROVIDERS: ATTEND Obstetrics & Gynecology
DX: N92.0 Excessive and frequent menstruation with regular cycle (principal)
CPT/HCPCS: 76830

== ENCOUNTER 2020-03-10 05:52 | Day surgery (SDC) | payer BC ==
[2020-03-08 14:39] VITALS: BMI 31.9
--- NOTE | 2020-03-09 12:50 | P.HPOB ---
History of Present Illness H&P Date: 03/09/20 Chief Complaint: Menorrhagia This patient is a pleasant 35 yr female who is presenting for endometrial ablation secondary to menorrhagia. Patient is having heavy/long menses. Evaluation has including a pelvic ultrasound which was normal. Review of Systems Genitourinary: Reports as per HPI, Reports menorrhagia Menstruation: Reports as per HPI, Reports period heavy Past Medical History Past Medical History: Thyroid Disorder Additional Past Medical History / Comment(s): heavy menses History of Any Multi-Drug Resistant Organisms: None Reported Additional Past Surgical History / Comment(s): cyst on left wrist. sewing needle taken out of foot. wisdom teeth. Exploratory laparotomy at 20 weeks gestation. Past Anesthesia/Blood Transfusion Reactions: No Reported Reaction Additional Past Anesthesia/Blood Transfusion Reaction / Comment(s): NO SURGERY HISTORY Past Psychological History: Anxiety Smoking Status: Current some day smoker Past Alcohol Use History: None Reported - Past Family History Father Additional Family Medical History / Comment(s): CARDIAC HISTORY Mother Additional Family Medical History / Comment(s): AORTIC ANEURYSM Medications and Allergies Home Medications Medication Instructions Recorded Confirmed Type Levothyroxine Sodium [Synthroid] 75 mcg PO QAM 03/21/17 03/08/20 History Cetirizine HCl [Zyrtec] 10 mg PO DAILY 03/08/20 03/08/20 History Venlafaxine HCl [Effexor XR] 150 mg PO QAM 03/08/20 03/08/20 History Allergies Allergy/AdvReac Type Severity Reaction Status Date / Time Penicillins Allergy Rash/Hives Verified 03/08/20 14:33 Exam - OBG Physical Exam Abdomen: bowel sounds normal, no diffuse tenderness, no bruit present, no guarding noted, no hepatomegaly, no splenomegaly, no mass Vulva: both: normal Vagina: normal moisture, no discharge Cervix: no lesion, no discharge Uterus: normal size, normal contour Adnexa: both: normal Results Ultrasound on 12/23 was normal. Assessment and Plan Assessment: This is a pleasant 35 yr female with long standing menorrhagia who is requesting endometrial ablation for treatment. Plan is hysteroscopy, D&C, and Novasure endometrial ablation. I have discussed this surgery and risks: infection, bleeding, possible uterine perforation and/or thermal injury. All of her questions were answered and a written consent obtained. (1) Menorrhagia Status: Chronic Code(s): N92.0 - EXCESSIVE AND FREQUENT MENSTRUATION WITH REGULAR CYCLE SNOMED Code(s): 609773063
[~2020-03-10 05:52] MED LIST: Pre Op ABX Message 1 EACH MISC MISCELLANE ONE
[2020-03-10] MEDS ORDERED: HYDROmorphone 0.5 MG/0.5 ML SYRINGE IVP PRN (05:57)
[2020-03-10] MEDS ORDERED: LACTATED RINGERS 1,000 ML IV SCH (05:57)
[2020-03-10] MEDS ORDERED: MIDAZOLAM 2 MG/2 ML VIAL IV PRN (05:57)
[2020-03-10] MEDS ORDERED: SCOPOLAMINE 1.5MG/72HR PATCH TRANSDERM ONE (05:57)
[2020-03-10] MEDS ORDERED: DEXAMETHASONE SOD PHOSPHATE 4 MG/ML 1 ML VIAL IV ONE (05:57)
[2020-03-10] MEDS ORDERED: ONDANSETRON 4 MG/2 ML VIAL IVP ONE (05:57)
[2020-03-10] MEDS ORDERED: LACTATED RINGERS 1,000 ML IV ONE (06:26)
[2020-03-10] MEDS ORDERED: LIDOCAINE 1% (10MG/ML) FOR IV START INTRADERMA ONE (06:26)
[2020-03-10] MEDS ORDERED: LIDOCAINE 1% INJ 10MG/ML (20 ML MDV) ONE (06:48)
[2020-03-10] MEDS ORDERED: MIDAZOLAM 2 MG/2 ML VIAL ONE (06:48)
[2020-03-10] MEDS ORDERED: KETOROLAC 15 MG/ML 1 ML VIAL ONE (06:48)
[2020-03-10] MEDS ORDERED: fentaNYL (PF) 50 MCG/ML 2 ML AMP ONE (06:48)
[2020-03-10] MEDS ORDERED: PROPOFOL 10 MG/ML 20 ML VIAL IV ONE (06:48)
--- NOTE | 2020-03-10 07:31 | P.OP ---
Date of Procedure: 03/10/20 Preoperative Diagnosis: Menorrhagia Postoperative Diagnosis: Same Procedure(s) Performed: #1: Hysteroscopy. #2: Dilation and curettage. #3: NovaSure endometrial ablation Anesthesia: MAC Surgeon: Isak Lim Estimated Blood Loss (ml): 10 Urine output (ml): 25 Pathology: other (Uterine curettings) Condition: stable Disposition: PACU Indications for Procedure: Please see dictated H&P for intimate details of this patient's admission. Brief summary is a pleasant 35-year-old female with long-standing menorrhagia requesting endometrial ablation for treatment of menorrhagia. Patient understands this procedure and risks and risks of infection, bleeding, possible uterine perforation, and/or thermal injury. All the patient's questions been answered written consent obtained. Operative Findings: This patient normal appearing endometrial cavity. There was no evidence of polyps and/or fibroids. Description of Procedure: This patient is taken to the operating room and laid in the supine position. She subsequent undergoes general mask anesthesia without incident. An adequate level of anesthesia she's placed in dorsal lithotomy position. She has a vaginal perineal prep and drape. Examination under anesthesia shows a mid position uterus of normal size. At this time the bladder is drained for 25 mL of clear urine. A weighted speculum was placed in the posterior vagina and the anterior lip of the cervix is grabbed with an Allis clamp. Uterus is gently sounded this time to 9 cm. Gentle dilation is then done to allow the hysteroscope easily and the uterine cavity. Hysteroscopy is performed with saline solution the uterine cavity is observed and found to be normal. Cavity length was measured at 6.0 cm. With this done, the hysteroscope was removed and the cervix is dilated slightly more to allow a small curette easily uterine cavity. A thorough 4 quadrant curettage is then done. This tissue is sent off to pathology. With this completed the NovaSure device is then opened and appears to be intact. It is set at a length of 6.0 cm and is seated in place and opens up to a width of 4.6 cm. With this done and, it passes the cavity integrity test is then enabled at 152 W settings for 48 seconds. NovaSure device is then removed. Appears to be intact. Hysteroscopy again is performed and the cavity appears completely ablated up to the endocervix. Excellent results are noted. Procedure is then ended. All counts correct 3. There are no complications. Patient is awakened from anesthesia and taken recovery room satisfactory condition.
[2020-03-10 07:32] VITALS: TEMP 967
[2020-03-10 08:03] VITALS: RESP 16
[2020-03-10 08:39] VITALS: BP 118/75; PULSE 78
== END 2020-03-10 09:10 | disposition home or self-care (01) ==
LOC: OR 05:52
PROVIDERS: ATTEND Obstetrics & Gynecology
DX: N92.0 Excessive and frequent menstruation with regular cycle (principal); E07.9 Disorder of thyroid, unspecified; D36.7 Benign neoplasm of other specified sites; Z98.890 Other specified postprocedural states; F41.9 Anxiety disorder, unspecified; F17.200 Nicotine dependence, unspecified, uncomplicated; Z82.49 Family history of ischemic heart disease and other diseases of the circulatory system; Z79.890 Hormone replacement therapy; Z79.899 Other long term (current) drug therapy; Z79.1 Long term (current) use of non-steroidal anti-inflammatories (NSAID); Z88.0 Allergy status to penicillin
CPT/HCPCS: 81025; 88305; 58563; J2250; J1100; J2405; J2001; J3010; J1885; J2704

== ENCOUNTER → 2020-09-18 | Outpatient (CLI) | payer BC ==
--- NOTE | 2020-09-18 10:15 | CT ---
EXAMINATION TYPE: CT sinus wo con DATE OF EXAM: 09/18/2020 COMPARISON: None HISTORY: 35-year-old female J32.9, Headaches CT DLP: 563 mGycm Automated exposure control for dose reduction was used. TECHNIQUE: Noncontrast axial views of the paranasal sinuses were obtained. Coronal reconstructions pe rformed. FINDINGS: PARANASAL SINUSES: There is a trace mucosal thickening noted along the medial knight of the bilateral maxillary sinuses. Otherwise, the maxillary, frontal, ethmoid, sphenoid sinuses are well pneumatized. There is no air-fluid level. Reactive kindra- osteogenesis is not seen. There is no destruction of the osseous knight of the paranasal sinuses. THE NASAL CAVITY: The osteomeatal complexes are patent. There is slight nasal septal undulation towards the right. The imaged brain and orbits are normal in appearance. Small portion of the visualized mastoid air cells and middle ear cavities are well pneumatized. Reformatted images confirm above findings. IMPRESSION: Very trace mucosal thickening along the medial knight of the maxillary sinuses. Otherwise, no signif icant mucosal thickening identified.
== END | disposition home or self-care (01) ==
LOC: RADCTMAIN 09:11
PROVIDERS: ATTEND Otolaryngology
DX: J32.0 Chronic maxillary sinusitis (principal)
CPT/HCPCS: 70486

== ENCOUNTER → 2022-04-26 | Outpatient (CLI) | payer BC ==
--- NOTE | 2022-04-26 10:49 | US ---
EXAMINATION TYPE: US pelvis complete transvag DATE OF EXAM: 04/26/2022 COMPARISON: NONE CLINICAL HISTORY: R10.2 PELVIC PAIN. Pain TECHNIQUE: Transvaginal (TV) and Transabdominal (TA) . Transvaginal sonographic images were medical ly necessary to better assess the following anatomy: uterus and ovaries. EXAM MEASUREMENTS: Uterus: 9.1 x 3.6 x 6.2 cm Endometrial Stripe: .6 cm Right Ovary: 3.1 x 2.7 x 2.9 cm Left Ovary: 3.0 x 1.9 x 1.8 cm 1. Uterus: Anteverted wnl 2. Endometrium: wnl 3. Right Ovary: Cystic area 2.3 x 1.5 x 1.7 cm 4. Left Ovary: wnl Spectral, color and waveform doppler imaging shows good arterial and venous flow within the ovaries ; there is no evidence for ovarian torsion. 5. Bilateral Adnexa: wnl 6. Posterior cul-de-sac: wnl IMPRESSION: 1. Right ovarian cyst. Follow-up exam following the next normal menstrual period or 6 weeks is recomm ended.
== END | disposition home or self-care (01) ==
LOC: RADUSWWP 09:41
PROVIDERS: ATTEND Obstetrics & Gynecology
DX: R10.2 Pelvic and perineal pain (principal); N83.201 Unspecified ovarian cyst, right side
CPT/HCPCS: 76830; 76856

== ENCOUNTER → 2024-09-03 | Outpatient (CLI) | payer BC ==
--- NOTE | 2024-09-03 17:38 | CA ---
Transthoracic Echo Report Name: Geneva Murphy Age: 39 Gender: F : 1985 Exam Date: 09/03/2024 13:31 Exam Location: [facility] Ht (in): 68 Wt (lb): 180 Ordering Physician: Ciarra Humphries MD Attending/Referring Phys: [employer] Runner Diamond Childs RDCS Procedure CPT: Indications: Z82.49 FAMILY HX OF ISCHEM HEART DIS AND OTH DIS O Cardiac Hx: Technical Quality: Fair Contrast 1: Total Dose (mL): Contrast 2: Total Dose (mL): MEASUREMENTS (Male / Female) Normal Values 2D ECHO LV Diastolic Diameter PLAX 4.5 cm 4.2 - 5.9 / 3.9 - 5.3 cm LV Systolic Diameter PLAX 3.0 cm IVS Diastolic Thickness 1.0 cm 0.6 - 1.0 / 0.6 - 0.9 cm LVPW Diastolic Thickness 0.9 cm 0.6 - 1.0 / 0.6 - 0.9 cm LV Relative Wall Thickness 0.4 RV Internal Dim ED PLAX 2.8 cm LA Systolic Diameter LX 2.8 cm 3.0 - 4.0 / 2.7 - 3.8 cm LV Diastolic Volume MOD 4C 80.3 cm??? LV Systolic Volume MOD 4C 34.4 cm??? LV Ejection Fraction MOD 4C 57.1 % LV Cardiac Index MOD 4C 1378.6 cm???/min???m??? LV Diastolic Length 4C 7.9 cm LV Systolic Length 4C 6.7 cm LV Diastolic Volume MOD 2C 112.0 cm??? LV Systolic Volume MOD 2C 35.8 cm??? LV Ejection Fraction MOD 2C 68.0 % LV Cardiac Index MOD 2C 2289.3 cm???/min???m??? LV Diastolic Length 2C 8.6 cm LV Systolic Length 2C 6.3 cm LA Volume 37.1 cm??? 18 - 58 / 22 - 52 cm??? LA Volume Index 18.6 cm???/m??? 16 - 28 cm???/m??? M-MODE Aortic Root Diameter MM 2.8 cm AV Cusp Separation MM 2.3 cm DOPPLER AV Peak Velocity 173.5 cm/s AV Peak Gradient 12.0 mmHg MV Area PHT 2.8 cm??? Mitral E Point Velocity 92.8 cm/s Mitral A Point Velocity 67.5 cm/s Mitral E to A Ratio 1.4 MV Deceleration Time 271.0 ms TR Peak Velocity 242.2 cm/s TR Peak Gradient 23.5 mmHg Right Ventricular Systolic Press 28.1 mmHg FINDINGS Left Ventricle Left ventricular ejection fraction is estimated at 55-60 %. Left ventricular cavity size normal. Mildly increased septal wall thickness. Normal left ventricular wall motion. Right Ventricle Normal right ventricular size. Right ventricular systolic pressure within normal limits. Right Atrium Normal right atrial size. No right atrial thrombus or mass seen. Left Atrium Normal left atrial size. No left atrial thrombus or mass present. Mitral Valve Structurally normal mitral valve. No mitral stenosis, regurgitation or prolapse. Aortic Valve Trileaflet aortic valve. No aortic valve stenosis or regurgitation. Tricuspid Valve Structurally normal tricuspid valve. Trace to mild tricuspid regurgitation. Pulmonic Valve Structurally normal pulmonic valve. No pulmonic regurgitation. Pericardium No pericardial effusion. Aorta Normal size aortic root and proximal ascending aorta. CONCLUSIONS LVEF 55% Mild concentric LVH No obvious regional wall motion abnormality No significant chamber size abnormality No significant valvular dysfunction Previewed by: Dr Gareme Elam (Electronically Signed) Final Date: 03 September 2024 17:37
== END | disposition home or self-care (01) ==
LOC: RADECHMAIN 13:27
PROVIDERS: ATTEND Family Medicine
DX: Z82.49 Family history of ischemic heart disease and other diseases of the circulatory system (principal)
CPT/HCPCS: 93306